=== PATIENT | female | born 1935 | race Caucasian/White ===

== ENCOUNTER 2017-04-21 07:09 | Emergency (ER) | payer MEDICARE ==
[~2017-04-21] VITALS: Ht 172.7 cm; Wt 70.3 kg
[2017-04-21 07:20] VITALS: BP_SYST 132
[2017-04-21] MEDS ORDERED: BACITRACIN 1 GM OINT TP ONE (07:56)
[2017-04-21 08:37] VITALS: BP_SYST 128
== END 2017-04-21 08:37 | disposition home or self-care (01) ==
LOC: SED 07:09
DX: S61.411D Laceration without foreign body of right hand, subsequent encounter (principal); E78.5 Hyperlipidemia, unspecified; W18.30XD Fall on same level, unspecified, subsequent encounter
CPT/HCPCS: 99283

== ENCOUNTER 2017-04-24 07:43 | Emergency (ER) | payer MEDICARE ==
[~2017-04-24] VITALS: Ht 172.7 cm; Wt 70.3 kg
[2017-04-24 07:49] VITALS: BP_SYST 124
[2017-04-24 08:25] VITALS: BP_SYST 132
== END 2017-04-24 08:25 | disposition home or self-care (01) ==
LOC: SED 08:05
DX: S61.411D Laceration without foreign body of right hand, subsequent encounter (principal); E78.5 Hyperlipidemia, unspecified; X58.XXXD Exposure to other specified factors, subsequent encounter
CPT/HCPCS: 99281

== ENCOUNTER 2017-04-27 06:24 | Emergency (ER) | payer MEDICARE ==
[~2017-04-27] VITALS: Ht 172.7 cm; Wt 71.7 kg
[2017-04-27 06:39] VITALS: BP_SYST 125
--- NOTE | 2017-04-27 06:39 | NUR ---
Patient AAO x4, sitting in bed, here for suture removal for sutures placed to right palm on 04/14/17. Skin intact, no redness or drainage noted. Skin dry. No reports of pain. Will continue to monitor.
--- NOTE | 2017-04-27 06:39 | NUR ---
Placed in room 08. Side rails up. Care assumed.
--- NOTE | 2017-04-27 06:40 | NUR ---
ER at bedside examining patient.
[2017-04-27 07:12] VITALS: BP_SYST 121
--- NOTE | 2017-04-27 07:12 | NUR ---
Patient given written and verbal discharge instructions and verbalizes understanding. ER MD discussed with patient the results and treatment provided. Patient in stable condition. ID arm band removed. Non-adhesive bandage placed to right palm at suture removal site. No Rx given. Patient educated on pain management and to follow up with PMD. Pain Scale 0/10 . Opportunity for questions provided and answered.
== END 2017-04-27 07:12 | disposition home or self-care (01) ==
LOC: SED 06:24
DX: S61.411D Laceration without foreign body of right hand, subsequent encounter (principal); E78.5 Hyperlipidemia, unspecified; X58.XXXD Exposure to other specified factors, subsequent encounter
CPT/HCPCS: 99282

== ENCOUNTER 2023-08-31 15:57 | Emergency (ER) | payer MEDICARE ==
[~2023-08-31] VITALS: Ht 170.2 cm; Wt 62.6 kg
[2023-08-31 16:00] VITALS: BP_SYST 155; PULSE 76; RESP 17; TEMP 97.2; TEMP 98.3; O2SAT 98
[2023-08-31 16:52] LABS: BASOPHILS # (AUTO) 0.1 K/uL (0.0-0.2); BASOPHILS % (AUTO) 1.2 % (0.0-2.0); EOSINOPHILS # (AUTO) 0.3 K/uL (0.0-0.4); EOSINOPHILS % (AUTO) 5.2 % (0.0-4.0); HEMATOCRIT 35.6 % (36-48); HEMOGLOBIN 12.2 g/dL (12.0-16.0); LYMPHOCYTES # (AUTO) 1.5 K/uL (1.0-5.5); LYMPHOCYTES % (AUTO) 27.8 % (20.5-51.5); MEAN CORPUSCULAR HEMOGLOBIN 33 pg (27-31); MEAN CORPUSCULAR HGB CONC 34 % (32-36); MEAN CORPUSCULAR VOLUME 95 fL (79.0-98.0); MONOCYTES # (AUTO) 0.5 K/uL (0.0-1.0); MONOCYTES % (AUTO) 9.2 % (1.7-9.3); NEUTROPHILS # (AUTO) 3.1 K/uL (1.8-7.7); NEUTROPHILS % (AUTO) 56.6 % (40.0-70.0); PLATELET COUNT (AUTO) 269 K/uL (130-430); RED BLOOD CELL COUNT(AUTO) 3.75 MIL/uL (4.2-6.2); RED CELL DISTRIBUTION WIDTH 13.8 % (9.0-15.0); WHITE BLOOD COUNT (AUTO) 5.5 K/uL (4.8-10.8)
[2023-08-31 17:20] LABS: ANION GAP 7 (5-15); CALCIUM 8.7 mg/dL (8.4-11.0); CARBON DIOXIDE 28 mmol/L (23-29); CHLORIDE 102 mmol/L (98-107); CREATININE 0.77 mg/dL (0.55-1.30); GLUCOSE 98 mg/dL (74-106); POTASSIUM 3.9 mmol/L (3.5-5.1); SODIUM SERUM 137 mmol/L (136-145); UREA NITROGEN, BLOOD 14 mg/dL (8-21)
[2023-08-31 17:52] VITALS: BP_SYST 155; PULSE 76; RESP 17; TEMP 98.3; O2SAT 98
== END 2023-08-31 17:51 | disposition home or self-care (01) ==
LOC: SED 15:57
DX: R55 Syncope and collapse (principal); Z79.899 Other long term (current) drug therapy
CPT/HCPCS: 36415; 71045; 80048; 84484; 85025; 93005; 99285